=== PATIENT | male | born 1970 | race Caucasian/White ===

== ENCOUNTER 2022-05-12 19:27 | Inpatient (IN) ==
[2022-05-12] MEDS ORDERED: Ondansetron ODT 4 mg TAB 4 MG TAB PO ONE (21:45)
[2022-05-12 22:05] LABS: ABS Eosinophils 0.1 10^3/ul (0-0.6); ABS Lymphocytes 1.6 10^3/ul (1.0-4.8); ABS Monocytes 0.8 10^3/ul (0-0.8); ABS Neutrophils 13.2 10^3/ul (1.5-7.7); Eosinophil % 0.5 %; Hematocrit 47 % (42-52); Hemoglobin 15.1 g/dL (14.0-18.0); Lymphocyte % 9.9 %; Mean Corpuscular HGB Conc 32 g/dL (31-36); Mean Corpuscular Hemoglobin 29 pg (27-31); Mean Corpuscular Volume 91 fL (80-94); Mean Platelet Volume 8.6 fL (7.4-10.4); Platelet Count 315 10^3/uL (150-450); Red Blood Count 5.16 10^6 /uL (4.18-5.48); Red Cell Distribution Width 14 % (10-15); White Blood Count 15.7 10^3/uL (3.5-10.8)
[2022-05-12] MEDS ORDERED: Morphine 2 MG/ML SYRINGE IV ONE (22:16)
[2022-05-12 22:45] LABS: Albumin 4.6 g/dL (3.2-5.2); Calcium 9.7 mg/dL (8.6-10.3); Globulin 2.3 g/dL (2-4); Potassium 4.7 mmol/L (3.5-5.0); Total Bilirubin 0.4 mg/dL (0.2-1.0); Total Protein 6.9 g/dL (6.4-8.9); eGFR CKD-EPI 96.9 (>60)
[2022-05-13] MEDS ORDERED: Morphine 4 MG/ML VIAL (1 ml) IV PRN (00:15)
[2022-05-13] MEDS ORDERED: Piperacillin/Tazobac ADVAN 3.375 GM in NS 0.9% 100 ml BAG 100 ML IV ONE (00:16)
[2022-05-13] MEDS ORDERED: Morphine 4 MG/ML VIAL (1 ml) ONE (00:22)
[2022-05-13] MEDS ORDERED: NS 0.9% 1000 ml BAG 1,000 ML IV SCH (00:45)
[2022-05-13] MEDS ORDERED: Ondansetron 4 mg VIAL 2 MG/ML 2 ml VIAL IV PRN (02:16)
[2022-05-13] MEDS ORDERED: Acetaminophen IV 1 GM/100ML 100 ML IV PRN (02:18)
[2022-05-13] MEDS ORDERED: Nicotine GUM 2MG FRUIT FLAVOR PO PRN (02:25)
[2022-05-13 02:40] LABS: C Reactive Protein 2.82 mg/L (<8.01)
[2022-05-13] MEDS ORDERED: Zosyn per Pharmacy NOTE FOLLOW UP SCH (03:00)
[2022-05-13] MEDS: ZOSYN 3.375 GM Q8H per EXTENDED INFUSION IV SCH ×3 (04:49→21:11)
[2022-05-13] MEDS: Nicotine PATCH 7 MG/24 HR PATCH TRANSDERM SCH (04:49)
[2022-05-13 06:19] LABS: Hematocrit 45 % (42-52); Mean Corpuscular HGB Conc 34 g/dL (31-36); Mean Corpuscular Hemoglobin 30 pg (27-31); Mean Corpuscular Volume 89 fL (80-94); Mean Platelet Volume 8.5 fL (7.4-10.4); Platelet Count 286 10^3/uL (150-450); Red Blood Count 4.99 10^6 /uL (4.18-5.48); Red Cell Distribution Width 14 % (10-15); White Blood Count 14.9 10^3/uL (3.5-10.8)
[2022-05-13 06:45] LABS: Calcium 8.9 mg/dL (8.6-10.3); Magnesium 1.9 mg/dL (1.9-2.7); Potassium 4.2 mmol/L (3.5-5.0); eGFR CKD-EPI 102.8 (>60)
[2022-05-13] MEDS: Enoxaparin 40 MG/0.4 ML SYR SUBCUT SCH (06:59)
[2022-05-13] MEDS ORDERED: Amphetamine MIXED SALT 10mgTAB PO PRN (09:53)
[2022-05-13] MEDS ORDERED: Lactated Ringers 1000 ml BAG 1,000 ML IV ONE (11:23)
[2022-05-13] MEDS ORDERED: Morphine 2 MG/ML SYRINGE IV PRN (11:23)
[2022-05-13] MEDS ORDERED: NS 0.9% 1,000 ML IV SCH (14:30)
[2022-05-14] MEDS: ZOSYN 3.375 GM Q8H per EXTENDED INFUSION IV SCH ×3 (05:15→21:42)
[2022-05-14 05:53] LABS: Hematocrit 41 % (42-52); Hemoglobin 13.8 g/dL (14.0-18.0); Mean Corpuscular HGB Conc 33 g/dL (31-36); Mean Corpuscular Hemoglobin 30 pg (27-31); Mean Corpuscular Volume 90 fL (80-94); Mean Platelet Volume 8.5 fL (7.4-10.4); Platelet Count 250 10^3/uL (150-450); Red Blood Count 4.61 10^6 /uL (4.18-5.48); Red Cell Distribution Width 14 % (10-15); White Blood Count 15.5 10^3/uL (3.5-10.8)
[2022-05-14 06:25] LABS: Calcium 8.7 mg/dL (8.6-10.3); Potassium 4.5 mmol/L (3.5-5.0); eGFR CKD-EPI 98.2 (>60)
[2022-05-14] MEDS: Nicotine PATCH 7 MG/24 HR PATCH TRANSDERM SCH (06:42)
[2022-05-14 07:49] LABS: ABS Eosinophils 0.2 10^3/ul (0-0.6); ABS Lymphocytes 2.4 10^3/ul (1.0-4.8); ABS Monocytes 1.8 10^3/ul (0-0.8); ABS Neutrophils 11.1 10^3/ul (1.5-7.7); Eosinophil % 1.2 %; Lymphocyte % 15.5 %
[2022-05-14] MEDS: Enoxaparin 40 MG/0.4 ML SYR SUBCUT SCH (10:17)
[2022-05-14] MEDS: Morphine 2 MG/ML SYRINGE IV PRN (12:29)
[2022-05-14] MEDS: NS 0.9% 1000 ml BAG 1,000 ML IV SCH (12:30)
[2022-05-15] MEDS: ZOSYN 3.375 GM Q8H per EXTENDED INFUSION IV SCH ×3 (05:28→21:28)
[2022-05-15] MEDS: Nicotine PATCH 7 MG/24 HR PATCH TRANSDERM SCH (05:29)
[2022-05-15] MEDS: NS 0.9% 1000 ml BAG 1,000 ML IV SCH (06:14)
[2022-05-15 08:08] LABS: C Reactive Protein 96.03 mg/L (<8.01)
[2022-05-15 08:47] LABS: Albumin 3.4 g/dL (3.2-5.2); Albumin/Globulin Ratio 1.7 (1-3); Calcium 8.4 mg/dL (8.6-10.3); Potassium 4.1 mmol/L (3.5-5.0); Total Bilirubin 0.6 mg/dL (0.2-1.0); Total Protein 5.4 g/dL (6.4-8.9); eGFR CKD-EPI 106.2 (>60)
[2022-05-15 09:07] LABS: Hematocrit 39 % (42-52); Hemoglobin 12.9 g/dL (14.0-18.0); Mean Corpuscular HGB Conc 33 g/dL (31-36); Mean Corpuscular Hemoglobin 30 pg (27-31); Mean Corpuscular Volume 90 fL (80-94); Mean Platelet Volume 9.1 fL (7.4-10.4); Platelet Count 262 10^3/uL (150-450); Red Blood Count 4.37 10^6 /uL (4.18-5.48); Red Cell Distribution Width 14 % (10-15); White Blood Count 14.4 10^3/uL (3.5-10.8)
[2022-05-15] MEDS: Enoxaparin 40 MG/0.4 ML SYR SUBCUT SCH (09:40)
[2022-05-15] MEDS ORDERED: Enoxaparin 60 MG/0.6 ML SYR SUBCUT SCH (18:30)
[2022-05-15] MEDS: Morphine 2 MG/ML SYRINGE IV PRN (21:31)
[2022-05-15] MEDS: Enoxaparin 60 MG/0.6 ML SYR SUBCUT SCH (21:37)
[2022-05-16 01:17] LABS: Urine Appearance Clear; Urine Bilirubin Negative (Negative); Urine Color Yellow; Urine Glucose Negative (Negative); Urine Ketones Negative (Negative); Urine Nitrite Negative (Negative); Urine Protein Trace (Negative); Urine Urobilinogen 0.2 (Negative) (Negative); Urine pH 7.5 (5.0-9.0)
[2022-05-16 01:26] LABS: Urine Bacteria Absent (Absent); Urine Red Blood Cell Trace(0-2/hpf) (Absent); Urine White Blood Cell Trace(0-5/hpf) (Absent)
[2022-05-16] MEDS: ZOSYN 3.375 GM Q8H per EXTENDED INFUSION IV SCH ×3 (05:36→21:06)
[2022-05-16] MEDS: Nicotine PATCH 7 MG/24 HR PATCH TRANSDERM SCH (06:20)
[2022-05-16] MEDS: Enoxaparin 60 MG/0.6 ML SYR SUBCUT SCH ×2 (08:03→21:06)
[2022-05-16 08:46] LABS: ABS Basophils 0.1 10^3/ul (0-0.2); ABS Eosinophils 0.3 10^3/ul (0-0.6); ABS Lymphocytes 2.2 10^3/ul (1.0-4.8); ABS Monocytes 1.2 10^3/ul (0-0.8); ABS Neutrophils 7.8 10^3/ul (1.5-7.7); Eosinophil % 2.7 %; Hematocrit 36 % (42-52); Hemoglobin 11.8 g/dL (14.0-18.0); Lymphocyte % 18.8 %; Mean Corpuscular HGB Conc 33 g/dL (31-36); Mean Corpuscular Hemoglobin 30 pg (27-31); Mean Corpuscular Volume 89 fL (80-94); Nucleated Red Blood Cells % 0.1; Platelet Count 280 10^3/uL (150-450); Red Blood Count 3.98 10^6 /uL (4.18-5.48); Red Cell Distribution Width 13 % (10-15); White Blood Count 11.6 10^3/uL (3.5-10.8)
[2022-05-16 08:58] LABS: C Reactive Protein 129.08 mg/L (<8.01); Calcium 8.6 mg/dL (8.6-10.3); Potassium 4.3 mmol/L (3.5-5.0); eGFR CKD-EPI 103.9 (>60)
[2022-05-16 10:32] LABS: Erythrocyte Sed Rate 47 mm/Hr (0-19)
[2022-05-17] MEDS: ZOSYN 3.375 GM Q8H per EXTENDED INFUSION IV SCH ×2 (04:50→12:43)
[2022-05-17 05:00] LABS: ABS Basophils 0.1 10^3/ul (0-0.2); ABS Eosinophils 0.5 10^3/ul (0-0.6); ABS Lymphocytes 2.7 10^3/ul (1.0-4.8); ABS Monocytes 1.1 10^3/ul (0-0.8); ABS Neutrophils 5.5 10^3/ul (1.5-7.7); Eosinophil % 4.7 %; Hematocrit 35 % (42-52); Hemoglobin 11.9 g/dL (14.0-18.0); Lymphocyte % 27.1 %; Mean Corpuscular HGB Conc 34 g/dL (31-36); Mean Corpuscular Hemoglobin 30 pg (27-31); Mean Corpuscular Volume 89 fL (80-94); Mean Platelet Volume 8.1 fL (7.4-10.4); Nucleated Red Blood Cells % 0.1; Platelet Count 320 10^3/uL (150-450); Red Blood Count 3.94 10^6 /uL (4.18-5.48); Red Cell Distribution Width 13 % (10-15); White Blood Count 9.8 10^3/uL (3.5-10.8)
[2022-05-17 05:59] LABS: Calcium 8.6 mg/dL (8.6-10.3); Potassium 4.1 mmol/L (3.5-5.0)
[2022-05-17 06:04] LABS: eGFR CKD-EPI 102.8 (>60)
[2022-05-17] MEDS: Nicotine PATCH 7 MG/24 HR PATCH TRANSDERM SCH (06:11)
[2022-05-17 19:44] VITALS: BP 116/72
== END 2022-05-17 21:15 | disposition home or self-care (01) | DRG 463 ==
LOC: EDHOLD 19:27 → ED 19:27 → SUATTDRO 05-13 02:16 → EDHOLD 05-13 06:22 → SSU 05-13 06:48
PROVIDERS: ADMIT Internal Medicine; ATTEND Student in an Organized Health Care Education/Training Program